=== PATIENT | female | born 1925 | race Caucasian/White ===

== ENCOUNTER 2017-01-20 02:47 | Inpatient (IN) | payer OTHER ==
[~2017-01-20] VITALS: Ht 154.9 cm; Wt 44.6 kg
[2017-01-20] VITALS (7 sets, daily range): BP systolic 118–167; BP diastolic 59–93
--- NOTE | ~2017-01-20 | PR ---
[place], [place] PROGRESS NOTE NAME: MELVI GALLEGOS UNIT #: [id number] ROOM: 409 DOCTOR: JESSICA ABBOTT,JUNE BIRTHDATE: [birth year] DOS: 01/23/2017 SUBJECTIVE: The patient is a pleasant, confused 89-year-old female who is being followed for bacteremia. One of 3 bottles upon admission had gram-positive cocci in pairs and clusters. This was felt to likely be a contaminant. She had a urine culture with E. coli. She has been afebrile, has had normal WBC since admission. Denies any nausea, vomiting or diarrhea. No rash or itch. No cough or shortness of breath. No pain anywhere. No fevers or shaking chills. CURRENT MEDICATIONS: Include Toprol, Keflex, MiraLax, Eliquis, vitamin D, Imodium, Protonix, Bentyl, DuoNebs, and Tylenol. Had an echocardiogram yesterday, which did not demonstrate a vegetation. PHYSICAL EXAMINATION: VITAL SIGNS: Show temp 98.6, pulse 95, respirations 20, BP 125/67. GENERAL: An 89-year-old female, in no acute distress. HEAD, EYES, EARS, NOSE, AND THROAT: Normocephalic, no thrush. LUNGS: Clear to auscultation bilaterally. Respirations even and unlabored. HEART: Regular rhythm. No murmur appreciated. ABDOMEN: Soft, nontender, nondistended. EXTREMITIES: No edema, deformity or cyanosis. SKIN: Warm, pink, dry, and free of rashes. ASSESSMENT: Bacteremia almost certainly contaminant, should be identified tomorrow as well as bacteriuria with E. coli colonization versus urinary tract infection. She had no pyuria with her urinalysis at the time of admission. PLAN: At this point, we will continue Keflex for another 2 days. Follow up on her blood cultures. Repeat blood cultures from the remained sterile. Case discussed with Dr. Nany Nick. JUNE MILENA LOPEZ [place], [place] PROGRESS NOTE NAME: MELVI GALLEGOS UNIT #: [id number] ROOM: 409 DOCTOR: JESSICA ABBOTT,JUNE BIRTHDATE: [birth year] NANY NICK MD CM:PNTRANS [id number] JUNE JESSICA ABBOTT 01/25/17 1050 interface
--- NOTE | ~2017-01-20 | CON ---
[place], [place] REPORT OF CONSULTATION NAME: MELVI GALLEGOS UNIT #: [id number] ROOM: 409 DOCTOR: LUCIANA FERRO MD,DAHLIA BIRTHDATE: [birth year] DOS: 01/21/2017 This consult note is to be attached to Dr. Chowdhury's independently dictated consult note. REASON FOR CONSULTATION: Pulmonary nodules on CT. CHIEF COMPLAINT: Shortness of breath. HISTORY OF PRESENT ILLNESS: The patient is an 89-year-old female who had been complaining of worsening shortness of breath that has been getting somewhat worse over the past couple of years. She, however, had a significant acute exacerbation of dyspnea last night and was brought to the ER. She has had a history of pulmonary nodules in the past and she had seen a dry cleaning counter clerk. A CT was done several times according to the family members and the findings were reportedly benign. It is unclear however if the nodules seen on the CT today are the same as the ones that were seen previously. She does have a history of coronary artery disease, hypertension, hyperlipidemia and a previous myocardial infarction. PAST SURGICAL HISTORY: Significant for appendectomy, cardiac catheterization with stenting in 2014 and a history of colon resection. SOCIAL HISTORY: The patient does not smoke, drink or use any illicit drugs. FAMILY HISTORY: Father and mother both were . Father was in his 80s and mother was in her 70s, cause unclear. ALLERGIES: LEVAQUIN, DEMEROL, FOSAMAX, CELEBREX, PARECOXIB AND ROFECOXIB. HOME MEDICATIONS: That are reported are loperamide 4 mg and dicyclomine 10 mg b.i.d. and atenolol. Discontinued the home meds Eliquis, levothyroxine, aspirin, clopidogrel, simvastatin, atenolol and potassium citrate. REVIEW OF SYSTEMS: GENERAL: Reports weight loss, but denies fevers or chills. HEENT: Denies any change in vision or hearing; drainage from eyes, nose or ears; pain in throat, ears or anywhere else. CARDIOVASCULAR: Reports palpitations, but denied any chest pain or lower extremity edema. RESPIRATIONS: Reports shortness of breath, cough, but denies any hemoptysis, denies any wheezing, denies any dyspnea on exertion or sputum production. ABDOMEN: Denies any abdominal pain, nausea, vomiting or diarrhea, but does admit to decreased appetite. GENITOURINARY: Denies dysuria, hematuria or frequency. NEUROLOGIC: Denies lightheadedness, dizziness or confusion. PSYCHIATRIC: Denies depression or anxiety. ENDOCRINE: Denies polydipsia, denies heat intolerance. SKIN: Denies any new rashes or lesions. [place], [place] REPORT OF CONSULTATION NAME: MELVI GALLEGOS UNIT #: [id number] ROOM: 409 DOCTOR: LUCIANA FERRO MD,DAHLIA BIRTHDATE: [birth year] PHYSICAL EXAMINATION: VITAL SIGNS: Most recent vital signs were 98.9 temperature, pulse 86, respirations 18 and blood pressure 99/83, bedside pulse telemetry 95% on room air. GENERAL: She is awake, alert, pleasant, cooperative, in no acute distress. HEAD: Normocephalic, atraumatic. EYES: No lesions, no ulcerations, nonicteric. ENT: No lesions, scars. Naris is patent. NECK: Without lesions, masses. No ulcerations. HEART: Regular rate and rhythm with systolic murmur. No edema in lower extremities. LUNGS: Diminished breath sounds bilaterally with some rales/crackles in lower lung beavers. ABDOMEN: Soft, positive bowel sounds, nontender. EXTREMITIES: No clubbing, cyanosis, erythema. NEUROLOGIC: Grossly intact without any apparent focal neuro deficits. PSYCHOLOGICAL: Poor historian, does not appear anxious. SKIN: Warm and dry. No nodules. LABORATORY DATA: CBC shows WBC of 5.5 and HGB of 11.1 and HCT of 34.3 and a platelet count of 130. Coagulation: D-dimer is 7.67 with INR of 1. Sodium is 143, potassium is 3.9, chloride 106, carbon dioxide 30, BUN 9, creatinine 0.95, estimated GFR approximately 55, glucose 87, calcium 7.6, phosphorus 2.6, magnesium 1.9, bilirubin total 0.8, AST 15, ALT 12, alkaline phosphatase 59. Troponin 0.1, total protein 5.7, albumin 2.6, triglycerides 57, cholesterol 131, LDL 68, VLDL 11, HDL 52 and free T4 of 1.15 with a TSH of 6.31. Vitamin B12 of 141. Vitamin D 25-hydroxy is 19.7 and folate is 14.36. Urinalysis: +1 protein, +1 blood, positive nitrites, +4 bacteria, 0-3 epithelial cells, 0-2 white cells, 5-10 red blood cells, negative leukocyte esterase, negative bilirubin, urobilinogen is 0.2. Urine glucose negative, ketones negative, specific gravity 1.015. Urine pH 6.0, appearance cloudy, color yellow. Cultures: Urine culture was positive for more than 100,000 CFUs of gram-negative bacilli. Blood cultures: 1 positive blood culture with Gram-positive cocci in pairs and clusters. This is in the aerobic sample 1 out of 2. Repeat cultures are pending. IMAGING: Chest x-ray showed prominence of interstitial lung markings and bilateral pleural disease, possibly effusions as was read by the radiologist. Chest CTA showed "innumerable bilateral pulmonary nodules, most likely metastatic disease, malignancy workup recommended. Chronic changes of COPD with small dependently layering bilateral pleural effusions. No evidence of pulmonary embolus. Focal area of consolidation identified in the lingular segment in the left upper lobe, this may represent developing pneumonia; however, additional metastatic disease is also a consideration." CT of the abdomen and pelvis showed "no acute inflammatory or bowel obstruction; small to moderate bilateral effusions, left greater than right; nodular densities in the lung bases, which correlate with the CT examination worrisome for metastatic disease, clinical correlation recommended" as read by the radiologist. IMPRESSION AND PLAN: [place], [place] REPORT OF CONSULTATION NAME: MELVI GALLEGOS UNIT #: [id number] ROOM: 409 DOCTOR[facility] B[facility]: [birth year] 1. Acute respiratory failure with multiple pulmonary nodules unclear at this time if this is metastatic or if these nodules are new compared to the previous nodules which reported. 2. Possible pneumonia and possible urinary tract infection with potential sepsis and bacteremia. The patient is currently on vancomycin for the gram-positive cocci in clusters and pairs in the blood. We will continue to follow the cultures and reevaluate. 3. Abnormal troponin and new onset atrial fibrillation. The patient has been started on Eliquis. Cardiology is following. 3. Protein-calorie malnutrition, weight loss, recommend increased protein consumption/supplemental shakes/boost. For further details, please see Dr. Chowdhury's impression and plan. ADDENDUM CONSULTATION REQUESTED BY: Hospitalist Services. REASON FOR CONSULTATION: Possibility of malignancy, metastatic in the lungs with abnormal CT scan and shortness of breath. The patient was independently seen and examined today. The history of this patient was personally completed. The patient's examination was performed. All the labs were reviewed independently as well. The assessment and management personally completed for today's visit as well. The note done by the medical clerk of the patient was approved as well. The history was noted very limited because of the patient's history of dementia, unable to give any history. Some of the history has been provided by the patient's son and most of the history has been actually reviewed from documentation by the other physicians' notes. HISTORY OF PRESENT ILLNESS: This is an 89-year-old female, who does live at home as per son. She has been noted with symptoms of increased shortness of breath recurring for the past 3 days. She has been brought to the hospital for further assessment. The patient noted shortness of breath occurring with [id number] exertion, associated with changes in appetite, which has been decreased with progressive weakness, fatigue, and malaise. The symptoms have been noted to be present for the past several days. She has not been noted with any symptoms of hemoptysis. The patient denies any symptoms of wheezing. Some dry cough was noted, which has been noted minimal as per the patient. REVIEW OF SYSTEMS: Already completed by the medical clerk. PAST MEDICAL HISTORY: 1. Significant for history described as colon cancer, diagnosed about 2 years ago, treated at the [facility] with surgical resection of the colon. The patient did not receive any radiation or chemotherapy. 2. History of chronic dementia. 3. History of essential hypertension. 4. History of hyperlipidemia. [place], [place] REPORT OF CONSULTATION NAME: MELVI GALLEGOS UNIT #: [id number] ROOM: 409 DOCTOR: LUCIANA FERRO MD,[facility] BIRTHDATE: [birth year] 5. History of coronary artery disease with past myocardial infarction, also noted history of angioedema. SOCIAL HISTORY: The patient noted nonsmoker, lifetime. There was no history of alcohol use or illicit drug use. She is currently and lives at home with her family members. PAST SURGICAL HISTORY: 1. Cataract extraction, lens implantation. 2. Partial colon resection, details unknown. 3. Cardiac catheterization. 4. Appendectomy. FAMILY HISTORY: The patient's mother is and father is also . The medical illnesses were unknown. HOME MEDICATIONS: Noted use of atenolol, dicyclomine, and loperamide. DRUG ALLERGIES: REPORTED ALLERGY TO FOSAMAX, CELEBREX, LEVAQUIN, DEMEROL, PARECOXIB, AND ROFECOXIB. PHYSICAL EXAMINATION: GENERAL: This is an 89-year-old elderly female patient noted quite debilitated at her age, sitting on the chair without any acute distress. Height of 5 feet 1 inch, weight of 98 pounds, BMI only noted at 18.5. VITAL SIGNS: Normal temperature, respiratory rate 18-25, heart rate of 156-86, blood pressure of 99/83-118/68. Intake is 1950, the output 1055 mL. The pulse oxygen saturation recorded on 3 liters was 95% on room air with 96% saturation. HEENT: Examination shows head was atraumatic. Eyes, nonicterus. Mild senile hearing loss. NECK: Supple. CARDIOVASCULAR: S1, S2 is audible. LUNGS: The patient was noted with scattered crackles, no wheezing. ABDOMEN: Soft, nontender, and flat. EXTREMITIES: Showed no edema, clubbing, or cyanosis. CENTRAL NERVOUS SYSTEM: Difficult to perform, but there were no focal deficits. The patient moving all the upper and the lower extremities. SKIN: Visible, no lesions or rashes. MUSCULOSKELETAL: No obvious deformity except mild senile kyphosis. LABORATORY DATA: Lactic acid on admission 2.3 and 1.4 on follow up. CBC of 01/20/2017 was noted essentially normal. The CMP of the patient on 01/20/2017, noted glucose of 181, BUN was normal, creatinine was normal. Sodium was noted normal and calcium was normal as well. PT/INR was noted normal. D-dimer 7.67, which was noted yesterday. Arterial blood gas yesterday pH of 7.45, pCO2 of 41, pO2 of 72.9. Troponin minimally elevated at 0.61 for the patient's second set yesterday. Third set was 0.170. Blood culture from the 01/20/2017 was noted with gram-positive cocci in clusters. CMP was noted as BUN and creatinine was normal. CBC of 01/21/2017, noted with WBC count normal, hemoglobin 11.1, hematocrit 34.3, platelet count 130,000. The third set of troponin was noted [place], [place] REPORT OF CONSULTATION NAME: MELVI GALLEGOS UNIT #: [id number] ROOM: 409 DOCTOR: DAHLIA BUTTS MD BIRTHDATE: [birth year] minimally elevated at 0.084 and the fourth one is 0.07. Culture of the urine noted to have a growth of gram-negative bacilli isolation. Radiology data which was reviewed, the chest x-ray that was done on 01/20/2017 shows patchy infiltration. The patient was noted with interstitial edema. CT scan of the abdomen and pelvis that was done on 01/20/2017 was described by the radiologist with no acute inflammatory changes, pleural fluid was described, nodular density at lower bases of the lungs was described. CTA of the chest, does not show any evidence of pulmonary embolism. Multiple nodules noted in the lungs bilaterally following the bronchovascular bundles as well of different sizes. There were no cavitations noted. The index nodule was noted in the left lower lobe as 1.4 cm in size. Evidence of ground glass opacity was noted in the lungs bilaterally with basilar area of some scarring as well. A small bilateral pleural fluid was visible as well. IMPRESSION: 1. The patient who has been currently admitted to the hospital, was noted with symptoms of shortness of breath with other changes as significant decreased appetite, malaise, and fatigue. Current pulmonary nodules were suggestive of the way they are distributed as most likely cause as metastatic malignancy noted from unknown primary with history of colon cancer certainly. The colon cancer metastatic disease in the lungs could be manifesting that way. The patient was also noted with mildly abnormal troponin, etiology unclear as well. Gram-positive cocci bacteremia was noted, possible contamination; however, the endocarditis could be considered, but usually with endocarditis the nodules are noted rapidly cavitating at least, which are not seen at the present time; however, the diagnosis of endocarditis to be considered and excluded completely. 2. Elderly status with dementia was noted as well. PLAN OF RECOMMENDATIONS: Currently being treated with the current antibiotic covering gram-positive organism. Consider echocardiogram, transthoracic and necessary transesophageal echocardiogram to rule out endocarditis. Monitoring culture results to rule out contamination. At this time, the further workup to be considered for metastatic malignancy would require a CT-guided needle aspiration biopsy if agreed upon by the patient's family members; could be done, but conservative approach could be taken because of the patient's currently advanced age. This is to be clearly discussed with the patient and with all the family members to make that determination. CEA level of the patient was ordered for the history of colon cancer to assess its level. Other etiology of the current pulmonary nodule would be considered as noninfectious including vasculitis and various other reasons. Continue symptomatic management, improve the nutritional status as well. The patient is getting the medical management for the atrial fibrillation with rapid ventricular response which were noted on current admission as well, treated with currently use of the IV Cardizem drip, currently ongoing 5 mg/hour as well as the patient was started on the Eliquis as 2.5 mg b.i.d. by the traffic sign erection supervisor. Other supportive plan of management, additional changes in treatment to be done based on the progression of illness. Prealbumin level was also ordered to assess the nutritional status. Thank you for allowing me to participate in the care of this patient. [place], [place] REPORT OF CONSULTATION NAME: MELVI GALLEGOS UNIT #: [id number] ROOM: 409 DOCTOR: DAHLIA BUTTS MD BIRTHDATE: [birth year] DAHLIA CHOWDHURY MD CM:CONSTR:REPORT OF CONSULTATION 1415 01/22/17 0857 interface
--- NOTE | ~2017-01-20 | PR ---
[place], [place] PROGRESS NOTE NAME: MELVI GALLEGOS UNIT #: [id number] ROOM: 409 DOCTOR: LUCIANA FERRO MD,DAHLIA BIRTHDATE: [birth year] DOS: 01/22/2017 SUBJECTIVE: The patient has been noted comfortable at this time, was independently seen and examined with [id number] encounter. History was confirmed. All the available labs were reviewed. The decision for patient medical management were personally made. The note done by the medical instrument technician was approved. The patient reported symptoms of acute shortness of breath at this time, was noted comfortable. There was no coughing, chest pain described. OBJECTIVE: VITAL SIGNS: Reviewed as normal. LUNGS: Noted clear. ABDOMEN: Soft, nontender. LABORATORY DATA: The patient's CEA level was noted normal. Prealbumin level noted with moderate decrease at 12. The range was noted 12 to ____. IMPRESSION: 1. Protein calorie malnutrition status. 2. Bilateral pulmonary nodules with strong possibility of cancer of the lung, which will be considered metastatic. One out of two blood cultures noted positive gram-positive cocci. Possibly contamination would be considered. However, other etiologies currently has been excluded with assessment of cardiac echocardiogram to rule out endocarditis. PLAN OF MANAGEMENT: Depends on the patient's family members further advanced directives and their decision made for this patient. Further investigation of the nodules ____ would be done with a PET scan and CT-guided needle aspiration biopsy of the index nodule of the left lower lobe. Other previous treatment plan, management therapy and care. DAHLIA CHOWDHURY MD CM:PNTRANS [id number] DAHLIA FERRO MD 01/22/17 1133 interface
--- NOTE | ~2017-01-20 | CON ---
[place], [place] REPORT OF CONSULTATION NAME: MELVI GALLEGOS UNIT #: [id number] ROOM: 409 DOCTOR: JESSICA ABBOTT,JUNE BIRTHDATE: [birth year] DOS: 01/22/2017 HISTORY OF PRESENT ILLNESS: The patient is a pleasant 89-year-old confused female who was admitted from home 2 days ago with shortness of breath. She had couple of CAT scans done. CT of the abdomen and pelvis and chest were reviewed. She had received diuresis. She had improvement of her breathing. One of her admitting blood cultures one bottle with gram-positive cocci in pairs and clusters that is only one bottle of 3. She also had a urine culture with E. coli. The urinalysis was positive for nitrites, but negative for leukocyte esterase and only 0-2 wbc's per high power field. She has been receiving Zosyn and vancomycin, was started earlier. She had echocardiogram done that was read by Dr. Kovacs that did not demonstrate any vegetation, but did demonstrate calcifications of mitral valve and aortic valve are thickened and sclerotic with decreased exertion. She has been afebrile since her admission. White counts are normal. Repeat blood cultures done yesterday are negative. ID is consulted for bacteremia and possible UTI. History is obtained per review of the [facility] chart as well as discussion with the patient's son and the patient. Though, the patient is a very poor historian due to her dementia. PAST MEDICAL HISTORY: As above as well as colon cancer, status post resection. In approximately 2 years ago, she has had diarrhea since that time and takes loperamide at home, angioedema, coronary artery disease, heart murmur, hypertension, hyperlipidemia, IA, appendectomy, cardiac cath. FAMILY MEDICAL HISTORY: Father in his 80s. Mother in her 70s, causes unknown. ALLERGIES: Include FOSAMAX, CELEBREX, LEVAQUIN, DEMEROL, PARECOXIB, ROFECOXIB. CURRENT MEDICATIONS: Vancomycin, MiraLax, Rocephin, Toprol, Eliquis, vitamin D, Imodium, Protonix, Bentyl, DuoNeb and Tylenol. LABORATORY DATA: Cultures as above. WBC is 5.5, platelets 130, creatinine 0.95, BUN 9. LFTs within normal limits. REVIEW OF SYSTEMS: Alert and oriented, confused, again has chronic loose stools, which she takes loperamide for status post colon resection for cancer, no nausea or vomiting. Denies any pain anywhere. Breathing is better. No rash or itch. No dysuria. Does have frequency with diuretics. No cough or shortness of breath currently. No fevers or shaking chills here or at home. Did have lower extremity edema at the time of admission that has since improved. No joint swelling or pain. No rash or pruritus. Further review of systems is unremarkable. PHYSICAL EXAMINATION: VITAL SIGNS: Temperature 98.0, pulse 106, respirations 20, BP 153/81. GENERAL: An 89-year-old female, in no acute distress. HEAD, EYES, EARS, NOSE AND THROAT: Normocephalic, no thrush. LUNGS: Clear to auscultation bilaterally. Respirations even and unlabored. HEART: Regular rhythm with murmur noted. [place], [place] REPORT OF CONSULTATION NAME: MELVI GALLEGOS UNIT #: [id number] ROOM: [facility] DOCTOR: JESSICA ABBOTTJUNE BIRTHDATE: [birth year] ABDOMEN: Soft, little tenderness in right lower abdomen, nondistended, positive bowel sounds. EXTREMITIES: Trace edema bilateral lower extremities. SKIN: Warm, dry, free of rashes. The patient is nontoxic in appearance. ASSESSMENT: Bacteremia one bottle. It is 3 likely a contaminant. Repeat blood cultures are negative thus far. Vancomycin was started for the positive blood culture; however, at this point, I agree it is probably contaminant and we can stop that, narrow the Rocephin down to oral Keflex for couple of more days for a questionable UTI. Follow up on the blood cultures. Case discussed with patient and son and also discussed with Dr. Nany Nick. PARRIS LOPEZ CNP NANY NICK MD CM:CONSTR:REPORT OF CONSULTATION 1640 01/22/17 1820 interface
--- NOTE | ~2017-01-20 | PR ---
[place], [place] PROGRESS NOTE NAME: [id number] UNIT #: [id number] ROOM: 409 DOCTOR: LEE JAMES DO BIRTHDATE: [birth year] DOS: 01/22/2017 This progress note is to be attached to the one dictated by Dr. Chowdhury. SUBJECTIVE: The patient was evaluated today. She is awake, alert and responsive. She is denying any chest pain, denies any vomiting, diarrhea, lightheadedness. She states she feels better than she did yesterday in terms of respiratory status, denies fevers or anything else. OBJECTIVE: VITAL SIGNS: Most recent set of vital signs, temperature is 97.8, respirations 18, pulse 93, blood pressure 128/72, bedside pulse ox 94% on room air. GENERAL: The patient appears comfortable, no acute distress. PULMONARY: Some scattered wheezes and diminished breath sounds, but no crackles. HEART: S1, S2 heard. No lower extremity edema. ABDOMEN: Soft, nontender, nondistended. NEUROLOGIC: No obvious neurological deficits. HEENT: No change. LABORATORY DATA: Chemistries: Sodium 143, potassium 3.9, chloride 106, carbon dioxide 30, BUN 9, creatinine 0.95, GFR 55, glucose 87, calcium 7.6, phosphorus 2.6, magnesium 1.9, total bilirubin 0.8, AST 15, ALT 12, alkaline phosphatase 59. CULTURES: 1. Urine culture, E. coli, pansensitive. 2. Blood cultures from the were positive for only one bottle and DP pulses from the 9th ____. 3. Radiology, ____. IMPRESSION: 1. Bilateral pulmonary nodules, likely ____ cancer, possibly from the colon. 2. The other possibilities include endocarditis. An echo has been done ____. In terms of management, this will depend on the patient and the family's decision whether to pursue a more aggressive route or whether to continue with comfort as the main goal. If they do decide to go with more aggressive route, they ____ needle aspiration with ____ in order. Otherwise, please see Dr. Chowdhury's note. LEE JAMES DO [place], [place] PROGRESS NOTE NAME: MELVI GALLEGOS UNIT #: [id number] ROOM: 409 DOCTOR: LEE JAMES DO BIRTHDATE: [birth year] DAHLIA CHOWDHURY MD CM:PNTOMAS [id number] LEE JAMES DO 01/25/17 1051 interface
--- NOTE | ~2017-01-20 | CON ---
[place], [place] REPORT OF CONSULTATION NAME: MELVI GALLEGOS UNIT #: [id number] ROOM: 409 DOCTOR: SANDOVAL BARON,NANY Jay BIRTHDATE: [birth year] DOS: 01/22/2017 ADDENDUM After reviewing the chart, labs radiographs and microbiology, I agree with above plans as described. We will follow the patient up clinically and adjust accordingly. Thank you for allowing me to see the patient and participate in her care. NANY NICK MD CM:CONSTR:REPORT OF CONSULTATION 1924 01/25/17 1104 interface
--- NOTE | ~2017-01-20 | PR ---
[place], [place] PROGRESS NOTE NAME: MELVI GALLEGOS UNIT #: [id number] ROOM: 409 DOCTOR: SANDOVAL BARON,NANY Jay BIRTHDATE: [birth year] DOS: 01/23/2017 ADDENDUM I agree with the above plans. As described, we will continue to follow the patient up clinically and adjust accordingly. NANY NICK MD CM:PNTRANS 24 [phone] NANY NICK MD 01/23/171921 interface
--- NOTE | ~2017-01-20 | PR ---
[place], [place] PROGRESS NOTE NAME: MELVI GALLEGOS UNIT #: [id number] ROOM: 409 DOCTOR: NATHANIEL HENDRICKSON MD BIRTHDATE: [birth year] DOS: 01/24/2017 REASON FOR VISIT: CHF and valvular heart disease. HISTORY OF PRESENT ILLNESS: The patient is feeling better. Denies any chest pain or shortness of breath. No PND, no orthopnea. She slept good last night. She is anticipating discharge, and wanted to be discharged today. REVIEW OF SYSTEMS: Review of the 8 systems negative except as mentioned above. RHYTHM STRIPS: The patient in sinus rhythm on the monitor. PHYSICAL EXAMINATION: VITAL SIGNS: Blood pressure 122/66, pulse 86, respiratory rate 16. GENERAL: Alert, comfortable, in no acute distress. HEENT: Pupils are round and equal. No jaundice. Tongue was moist and pharynx was clear. NECK: Supple, no distended neck veins, no carotid bruit. CHEST: Nontender. LUNGS: Few scattered rhonchi, but good air entry bilaterally. HEART: Regular rhythm, no S3. Grade 2/6 systolic ejection murmur. No palpable thrills. ABDOMEN: Benign, nontender. Bowel sounds normal. EXTREMITIES: Showed trace edema. SKIN: Warm and dry. No cyanosis, no clubbing. NEUROLOGIC: The patient is alert, oriented. No focal neurologic deficit. MEDICATIONS AND ALLERGIES: Reviewed. LABORATORY DATA: The creatinine was 1.2. IMPRESSION: 1. Acute on chronic systolic heart failure, well compensated. 2. Severe aortic stenosis. 3. Paroxysmal atrial fibrillation. 4. Severe LV dysfunction, EF 25%. 5. Chronic kidney disease. RECOMMENDATIONS: 1. Continue her Eliquis and metoprolol. 2. The patient was not on any TIFFANY or ARB due to chronic kidney disease and low blood pressure. 3. She can be discharged from the cardiac standpoint and I believe, we are waiting for a placement for her. 4. Cardiology signs off and see her as needed. 5. No family at bedside at the time of my examination. [place], [place] PROGRESS NOTE NAME: MELVI GALLEGOS UNIT #: [id number] ROOM: 409 DOCTOR: NATHANIEL HENDRICKSON MD BIRTHDATE: [birth year] NATHANIEL HENDRICKSON MD CM:NATALIE 31 NATHANIEL HENDRICKSON MD 01/24/17 1330 interface
--- NOTE | ~2017-01-20 | PR ---
[place], [place] PROGRESS NOTE NAME: MELVI GALLEGOS UNIT #: [id number] ROOM: 409 DOCTOR: NATHANIEL HENDRICKSON MD BIRTHDATE: [birth year] DOS: 01/23/2017 REASON FOR VISIT: CHF and valvular heart disease. HISTORY OF PRESENT ILLNESS: The patient is feeling better, still a little tired and short of breath. No chest pain, no dizziness, no PND. PHYSICAL EXAMINATION: VITAL SIGNS: Blood pressure 157/78, pulse ox 99, respiratory rate 16. Rhythm strips, the patient is in sinus rhythm. GENERAL: Alert, comfortable, in no acute distress. The patient is sitting in the chair. HEENT: Pupils are round and equal. No jaundice. Tongue was moist and pharynx was clear. NECK: Supple. The patient has elevated JVD, no carotid bruit. CHEST: Nontender. LUNGS: A few scattered rhonchi, decreased at bases. HEART: Regular rhythm, no S3, grade 3/6 systolic ejection murmur heard all over the precardium. No S3. No palpable thrills. ABDOMEN: Benign, nontender. Bowel sounds are normal. EXTREMITIES: Showed trace edema. Distal pulses are palpable. SKIN: Warm. No cyanosis, no clubbing. NEUROLOGIC: The patient is alert, oriented, no focal neurologic deficit. RECTAL: Deferred. IMPRESSION: 1. Wiidx-af-byaubxn systolic heart failure. 2. Severe aortic stenosis. 3. Severe left ventricular dysfunction with EF of 25%. 4. Paroxysmal atrial fibrillation. 5. Pneumonia. RECOMMENDATIONS: 1. Continue current medications. 2. I want to watch her heart rate and blood pressures. 3. Possibly she can be discharged to home tomorrow on her Eliquis and metoprolol. 4. No further cardiac testing. 5. There is no family at bedside at the time of my examination. [place], [place] PROGRESS NOTE NAME: MELVI GALLEGOS UNIT #: [id number] ROOM: 409 DOCTOR: NATHANIEL HENDRICKSON MD BIRTHDATE: [birth year] NATHANIEL HENDRICKSON MD CM:PNTRANS 1514 NATHANIEL HENDRICKSON MD 01/24/173 interface
--- NOTE | ~2017-01-20 | PR ---
[place], [place] PROGRESS NOTE NAME: MELVI GALLEGOS UNIT #: [id number] ROOM: 409 DOCTOR: DAHLIA BUTTS MD BIRTHDATE: [birth year] DOS: 01/23/2017 SUBJECTIVE: She has been noted comfortable at this time without any acute shortness of breath. There were no symptoms of coughing, chest pain or sputum expectoration described. OBJECTIVE: VITAL SIGNS: For the patient, normal temperature, respiratory rate 20, heart rate 99, blood pressure 134/76 to 152/78. HEENT: Without any acute changes. NECK: Supple. CARDIOVASCULAR: S1, S2 audible. LUNGS: Clear to auscultation bilaterally. ABDOMEN: Soft, nontender. EXTREMITIES: Shows no edema. LABORATORY DATA: Echocardiogram on 12/22/2016, moderate mitral valve regurgitation noted with severe aortic stenosis ____. The blood cultures which have been done on 10/20/2016, were reported with Gram-positive cocci in pairs and clusters, pending identification and sensitivities. IMPRESSION: Pulmonary nodule for the patient, unrelated to recurrent bacteremia, most likely contamination could be considered. Final identification sensitivities pending. ASSESSMENT: 1. Medication ___ protein-calorie malnutrition. 2. History of cancer of the colon. 3. Pulmonary nodule, rule out malignant nodules with metastasis. PLAN OF MANAGEMENT: I would not recommend any further assessment for this patient at this time due to inpatient treatment. The family members are aware of the nodule. The patient stated the nodule has been noted previously and been monitored. Other details were unknown. No family members have been available with the patient at this time to discuss that. Certainly, if they would be interested for this patient to have an outpatient workup done for the patient's pulmonary nodule, they can schedule appointment in my office after discharge. At this time, Pulmonary will sign off. Continue symptomatic management. [place], [place] PROGRESS NOTE NAME: MELVI GALLEGOS UNIT #: [id number] ROOM: 409 DOCTOR: DAHLIA BUTTS MD BIRTHDATE: [birth year] DAHLIA CHOWDHURY MD CM:PNTRANS [id number] DAHLIA FERRO MD 01/24/17 0546 interface
[~2017-01-20 02:47] MED LIST: ASPIR LOW81 MG PO; ATENOLOL50 MG PO; FELODIPINE ER2.5 MG PO; PLAVIX75 MG PO; ZOCOR20 MG PO
[2017-01-20 03:34] LABS: BASO # 0.1 10*3/uL (0.0-0.1); BASO % 0.5 % (0.0-1.0); EOS # 0.1 10*3/uL (0.0-0.4); EOS % 0.9 % (1.0-4.0); HEMATOCRIT 42.7 % (37.0-47.0); HEMOGLOBIN 13.5 g/dl (12.0-16.0); LYMPH # 1.5 10*3/uL (1.3-4.4); MEAN CELL VOLUME 97.5 fl (81.0-99.0); MEAN CORPUSCULAR HGB 30.8 pg (27.0-31.0); MEAN CORPUSCULAR HGB CONC 31.6 g/dl (33.0-37.0); MEAN PLATELET VOLUME 12.4 fl (9.6-12.3); MONO # 0.5 10*3/uL (0.1-1.0); MONO % 4.5 % (3.0-9.0); NEUT # 8.5 10*3/uL (2.3-7.9); NEUT % 79.8 % (47.0-73.0); PLATELET COUNT AUTOMATED 175 10*3/uL (130-400); RED BLOOD COUNT 4.38 10*6/uL (4.10-5.10); RED CELL DISTRI WIDTH 13.3 % (0-14.5); WHITE BLOOD COUNT 10.7 10*3/uL (4.8-10.8)
--- NOTE | 2017-01-20 03:34 | NUR ---
DR. NESBITT NOTIFIED OF CRITICAL LACTIC ACID OF 2.3
[2017-01-20 03:53] LABS: ALBUMIN 3.4 gm/dl (3.1-4.5); ALKALINE PHOSPHATASE 95 U/L (45-117); BUN 10 mg/dl (7-24); CHLORIDE 104 mmol/L (98-107); CREATININE 1.01 mg/dL (0.55-1.02); LIPASE 158 U/L (73-393); SGOT/AST 22 IU/L (3-35); SGPT/ALT 16 U/L (12-78); SODIUM 141 mmol/L (136-145); TOTAL PROTEIN 7.3 gm/dL (6.4-8.2)
[2017-01-20 03:55] LABS: TROPONIN I < 0.015 ng/ml (<0.045)
[2017-01-20 04:21] LABS: BILIRUBIN NEGATIVE (NEGATIVE); BLOOD 1+ (NEGATIVE); CLARITY SL CLOUDY (CLEAR); COLOR YELLOW (YELLOW); GLUCOSE NEGATIVE (NEGATIVE); KETONE NEGATIVE (NEGATIVE); LEUKO ESTERASE NEGATIVE (NEGATIVE); NITRITE POSITIVE (NEGATIVE); SPECIFIC GRAVITY 1.015 (1.005-1.030); UROBILINOGEN 0.2 E.U./dl (0.2-1.0)
[2017-01-20 04:29] LABS: BACTERIA 4+; EPITHELIAL CELLS 0-2; WBC 0-2 wbc/hpf (0-5)
--- NOTE | 2017-01-20 04:49 | NUR ---
PATIENT AFTER 1X ATTEMPT AT [facility] IS NOW REFUSING TEST. DR. NESBITT AWARE.
[2017-01-20] MEDS ORDERED: ELIQUIS2.5 M1 PO (08:37)
[2017-01-20] MEDS ORDERED: Synthroid,Levo50 MCG PO (08:38)
[2017-01-20] MEDS ORDERED: DICYCLOMINE HCL10 MG PO (08:39)
[2017-01-20] MEDS ORDERED: POTASSIUM CITR10 MEQ PO (08:41)
--- NOTE | 2017-01-20 09:00 | NUR ---
AN 89 Y/O FEMALE, admitted to , under the services of KENDRICK Almonte DO with a diagnosis of HX OF MALIGNANT NEOPLASM OF COLON/ACUTE DYSPNEA/MALIGNANT NODE ON LUNGS/PNEUMONIA. Chief complaint is SOB AND WEAKNESS. Patient arrived via stretcher from ER. Monitor applied. Initial assessment completed. Vital signs taken and recorded. KENDRICK ALMONTE DO notified of admission to the unit. Orders received. See assessment for past medical history, medications and allergies. Patient and/or family oriented to unit. [facility]/ visitation policy reviewed. Clothing/patient valuable form completed. LIAN ROD
[2017-01-20 09:18] LABS: ABG BASE EXCESS 4.7 mmol/L (-2.0-2.0); ABG HCO3 28.6 mmol/l (22-26); ABG O2 SATURATION 94.9 % (95-97); ARTERIAL BLOOD GAS PCO2 41.2 mmHg (35-45); ARTERIAL BLOOD GAS PH 7.456 (7.35-7.45); ARTERIAL BLOOD GAS PO2 72.9 mmHg (80-90)
[2017-01-20] MEDS ORDERED: LOPERAMIDE HCL2 MG PO (10:07)
[2017-01-20] MEDS ORDERED: ATENOLOL100 M1 PO (10:14)
--- NOTE | 2017-01-20 10:15 | NUR ---
MED LIST UPDATED WITH INFORMATION PROVIDED FROM [facility].
--- NOTE | 2017-01-20 11:15 | NUR ---
STARTING PO BARIUM PREP FOR CT ABDOMEN/PELVIS. PATIENT OTHERWISE NPO.
--- NOTE | 2017-01-20 11:32 | NUR ---
PHYSICAL THERAPY PAtient prepping for special tests. Will attempt later this date or at a later date. Thank you for this referral. Anastasiya Medrano,PT
--- NOTE | 2017-01-20 11:57 | NUR ---
[facility] NOTIFIED OF TROPONIN I RESULT.
--- NOTE | 2017-01-20 13:35 | NUR ---
PHYSICAL THERAPY PAtient is still prepping for tests. Anastasiya Medrano,PT
--- NOTE | 2017-01-20 15:16 | NUR ---
[facility] SHEET METAL DUCT INSTALLER HELPER NOTIFIED OF MOST RECENT TROPONIN RESULT OF 0.170.
--- NOTE | 2017-01-20 16:02 | NUR ---
DR. HURST NOTIFIED OF CONSULT RE: ELEVATED TROPONINS/SEPSIS/NO CHEST PAIN.
--- NOTE | 2017-01-20 20:07 | NUR ---
LAB RESULTS AND ORDERS REVIEWED
[2017-01-21] VITALS (11 sets, daily range): BP systolic 90–135; BP diastolic 53–95
--- NOTE | 2017-01-21 03:20 | NUR ---
NOTIFIED TROP 0.[address] Danielle BHAGAT
--- NOTE | 2017-01-21 04:55 | NUR ---
NOTIFIED DR BHAGAT FOR TROPONIN 0.100
[2017-01-21 05:23] LABS: ALBUMIN 2.6 gm/dl (3.1-4.5); ALKALINE PHOSPHATASE 59 U/L (45-117); BUN 9 mg/dl (7-24); CHLORIDE 106 mmol/L (98-107); CHOLESTEROL 131 mg/dL (<200); CREATININE 0.95 mg/dL (0.55-1.02); FREE T4 1.15 ng/dl (0.76-1.46); HDL CHOLESTEROL 52 mg/dl (40-60); LDL CHOLESTEROL 68 mg/dL (9-159); PHOSPHOROUS 2.6 mg/dL (2.5-4.9); POTASSIUM 3.9 mmol/L (3.5-5.1); SGOT/AST 15 IU/L (3-35); SGPT/ALT 12 U/L (12-78); SODIUM 143 mmol/L (136-145); TOTAL PROTEIN 5.7 gm/dL (6.4-8.2); TRIGLYCERIDES 57 mg/dl (<150); VLDL CHOLESTEROL 11 mg/dL (6-40)
[2017-01-21 06:00] LABS: BASO % 0.4 % (0.0-1.0); EOS # 0.2 10*3/uL (0.0-0.4); EOS % 3.1 % (1.0-4.0); LYMPH # 1.4 10*3/uL (1.3-4.4); LYMPH % 24.5 % (27.0-41.0); MEAN CELL VOLUME 96.6 fl (81.0-99.0); MEAN CORPUSCULAR HGB 31.3 pg (27.0-31.0); MEAN CORPUSCULAR HGB CONC 32.4 g/dl (33.0-37.0); MEAN PLATELET VOLUME 12.9 fl (9.6-12.3); MONO # 0.5 10*3/uL (0.1-1.0); MONO % 8.2 % (3.0-9.0); NEUT # 3.5 10*3/uL (2.3-7.9); NEUT % 63.4 % (47.0-73.0); PLATELET COUNT AUTOMATED 130 10*3/uL (130-400); RED BLOOD COUNT 3.55 10*6/uL (4.10-5.10); RED CELL DISTRI WIDTH 13.5 % (0-14.5); WHITE BLOOD COUNT 5.5 10*3/uL (4.8-10.8)
[2017-01-21 06:06] LABS: HEMATOCRIT 34.3 % (37.0-47.0); HEMOGLOBIN 11.1 g/dl (12.0-16.0)
--- NOTE | 2017-01-21 06:58 | NUR ---
NOTIFIED DR HURST OF NEW ONSET AFIB. NEW ORDERS RECEIVED AT THIS TIME. DR HURST REQUEST A CALL BACK FOR HR >100 IN 1 HR.
[2017-01-21 07:43] LABS: VITAMIN D, 25-HYDROXY 19.7 ng/mL (30-100)
--- NOTE | 2017-01-21 09:02 | NUR ---
PHYSICAL THERAPY Initial PT eval done in room this morning. Mod level complexity eval: 28932. Did not overly stress as awaiting more tests this morning, but able to gait with min hand held assist 1 in room <20' with O2 on. Please see eval for more information. Ania Glass, PT
--- NOTE | 2017-01-21 10:12 | NUR ---
In to see patient, son at bedside. Patient lives at home but multiple family memebers are in and out of the house all day long, cousin stays in the evening. She also has [facility] visiting nurses and aides 3 days per week. Son stated he may have it increased to 5 days per week. Patient and son stated no snf. Denies any other needs at home.
--- NOTE | 2017-01-21 10:45 | NUR ---
BELL MADE AWARE OF CRITICAL TRIPONIN
--- NOTE | 2017-01-21 11:11 | NUR ---
CALLED DR. CHOWDHURY FOR CONSULT HE STATES HE IS ALREADY AWARE AND SAW HER THIS MORNING
--- NOTE | 2017-01-21 12:00 | NUR ---
SPOKE WITH DR. PATIENCE ROMAN HR IS NOW IN 80'S BP MANUAL 90/60. HE STATES TO KEEP CARIZEM AT 10
--- NOTE | 2017-01-21 12:04 | NUR ---
BELL MADE AWARE OF PATIENT TROPONIN OF 0.077
--- NOTE | 2017-01-21 14:49 | NUR ---
24 HR chart check completed.
--- NOTE | 2017-01-21 16:41 | NUR ---
PATIENT IS RESTING IN THE BEDSIDE CHAIR. PATIENT DENIES ANY CHEST PAIN OR SOB. PATIENT DENIES ANY PAIN OR DISCOMFORT AT THIS TIME. PATIENT HAS HAD NO EPISODES OF N/V/D. PATIENT IS RECEIVING A CARDIZEM DRIP FOR NEW ONSET AFIB. BLOOD PRESSURE CHECKS Q2H. PATIENT HAS NO FURTHER REQUESTS AT THIS TIME. SEE SHIFT ASSESSMENT. CALL LIGHT IS WITHIN REACH.
--- NOTE | 2017-01-21 18:45 | NUR ---
PATIENT IS SITTING IN THE BEDSIDE CHAIR. PATIENT DENIES ANY PAIN OR DISCOMFORT. PATIENT IS RECEIVING A CARDIZEM DRIP FOR NEW ONSET AFIB. PATIENT HAS NO FURTHER REQUESTS AT THIS TIME. FAMILY IS AT THE BEDSIDE. CALL LIGHT IS WITHIN REACH. SEE SHIFT ASSESSMENT.
--- NOTE | 2017-01-21 20:00 | NUR ---
LAB RESULTS AND ORDERS REVIEWED
[2017-01-22] VITALS (9 sets, daily range): BP systolic 99–154; BP diastolic 64–84
--- NOTE | 2017-01-22 05:56 | NUR ---
NOTIFIED [employer] TO SPEAK WITH DR HURST. PT CONVERTED FROM AFIB TO NSR HR 80-90. CURRRENTLY AWAITING ORDERS.
--- NOTE | 2017-01-22 06:14 | NUR ---
RN RECEIVED RETURN CALL FROM DR HURST. ORDERS RECEIVED TO COLBY SO WITHOUT TITRATION.
[2017-01-22 06:40] LABS: CEA 2.5 ng/mL
--- NOTE | 2017-01-22 08:00 | NUR ---
HOB ELEVATED, EASY RESPIRATIONS WITH SKIN W/D. PT DENIES C/O AT PRESENT TIME. SEE SHIFT ASSESSMENT.
--- NOTE | 2017-01-22 09:22 | NUR ---
OOB TO CHAIR, BODY ALARM IN USE FOR PT SAFETY. DR CHOWDHURY IN TO SEE PT.
--- NOTE | 2017-01-22 09:46 | NUR ---
PHYSICAL THERAPY Taylor was seen this AM 1:1 for her therapy session and did very well. Transfer supine/sit MOD A X 1, sitting balance supervision X 1. Sit/stand, standing balance MOD A X 1. Gait total 40' X 4, verbal cueing for gait safety, turns and MIN/MOD BURRING WHEEL OPERATOR X 1, with sitting rest, Pt is confused. End with act Ex to bilateral LE of marching and LAQ's X 20 reps each with cueing. Pt up in her bedside chair, body alarm on. KILLIAN RENEE DONATIONS ATTENDANT.
--- NOTE | 2017-01-22 10:30 | NUR ---
SPOKE WITH DOROTHEA AT DR WILLINGHAM OFFICE REGARDING CONSULT.
--- NOTE | 2017-01-22 16:26 | NUR ---
PARRIS LOPEZ IN TO SEE PT, SON AT BEDSIDE.
--- NOTE | 2017-01-22 19:45 | NUR ---
PATIENT AMBULATORY IN ROOM. PER NGOC GRANDDAUGHTER SHE REQUESTS THAT TYHIS PATIENT NOT BE BED ALA,ED AT THIS TIME BECAUSE SHE IS IN THE ROOM WITH HER. PATIENT FOUND MULTIPLE TIMES WANDERING INTOT THE HALLWAY CALLING FOR HER CATS, NGOC GRAND DAUGHTER NOT ASSISTING HER AND CONTINUES TO SIT IN THE KIRSTIN-CHAIR AT [facility]. 1:1 WITH GRAND DAUGHTER ABOUT THE IMPORTANCE OF PREVENTING ANY FALLS WITH PATIENT. GRAND DAUGHTER VERBALIZED UNDERSTADING.
--- NOTE | 2017-01-22 20:41 | NUR ---
PATIENT AGAIN FOUND TO BE IN THE HALLWAY, GRAND DAUGHTER CONTIUES TO STAY SITTING IN THE CHAIR IN THE PATIENTS ROOM . 1:1 AGAIN WITH GRAND DAUGHTER AND GINETTEN ABOUT PREVENTING FALLS AND THE USEAGE OF CALL LIGHTS AND BED ALARMS. BOTH VERBALIZE UNDERSTANDING. PATIENT THEN TAKEN BYT THIS NURSE FOR A WALK AROUND THE HALLWAYS . ATTEMPTED TO ASSURE HEMA THAT HER CATS WERE NOT [facility] , HEMA WEAK, AND DOES NOT REORIENT WELL. CONTINUES TO CALL OUT FOR CATS. HEMA IN HER ROOM AT TIS TIME. AGAIN REINFORCED THAT IS PATIENT NEEDS TO USE CALL LIGHT OR EVEN FOR GRAND DAUGHTER TO USE CALL LIGHT IF SHE SEES THIS PATIENT ATTEMPTING TO ABULATE WITH OUT ASSISTANCE. GRAND DAUGHTER CONTINUES TO REFUSE BED ALARM AT THIS TIME.
--- NOTE | 2017-01-22 21:00 | NUR ---
LAB RESULTS AND ORDERS REVIEWED
[2017-01-23] VITALS: BP 151/81
[2017-01-23 08:00] VITALS: BP 152/78
--- NOTE | 2017-01-23 11:30 | NUR ---
PATIENT AWAKE & PLEASANTLY CONFUSED. PATIENT GETTING UP FREQUENTLY AND HAS NOW FIGURED OUT HOW TO TURN BODY ALARM OFF. NOTIFIED FOR POSSIBLE NEED FOR 1:1 D/T FALL RISK & ANTICOAGULANTS. NEW ORDER OBTAINED FOR 1:1 STATUS.
[2017-01-23 12:00] VITALS: BP 134/76
--- NOTE | 2017-01-23 13:30 | NUR ---
SON HERE AT THIS TIME VISITING WITH PATIENT. BODY ALARM INTACT STILL.
[2017-01-23 16:00] VITALS: BP 125/67
[2017-01-23 20:00] VITALS: BP 128/81
[2017-01-24] VITALS: BP 135/72
--- NOTE | 2017-01-24 00:46 | NUR ---
PATIENT RESTING IN BED WITH EYES CLOSED. NO SIGNS OR SYMPTOMS OF DISTRESS NOTED. PA SITTING IN ROOM WITH PATIENT. AROUSES TO VERBAL STIMULI. WILL CONTINUE TO MONITOR. CALL LIGHT IN REACH.
[2017-01-24 06:29] LABS: BASO # 0.1 10*3/uL (0.0-0.1); BASO % 0.8 % (0.0-1.0); EOS # 0.3 10*3/uL (0.0-0.4); HEMATOCRIT 42.5 % (37.0-47.0); HEMOGLOBIN 13.4 g/dl (12.0-16.0); LYMPH # 1.9 10*3/uL (1.3-4.4); LYMPH % 24.9 % (27.0-41.0); MEAN CELL VOLUME 99.1 fl (81.0-99.0); MEAN CORPUSCULAR HGB 31.2 pg (27.0-31.0); MEAN CORPUSCULAR HGB CONC 31.5 g/dl (33.0-37.0); MEAN PLATELET VOLUME 12.2 fl (9.6-12.3); MONO # 0.5 10*3/uL (0.1-1.0); MONO % 6.8 % (3.0-9.0); NEUT # 4.9 10*3/uL (2.3-7.9); NEUT % 63.1 % (47.0-73.0); PLATELET COUNT AUTOMATED 202 10*3/uL (130-400); RED BLOOD COUNT 4.29 10*6/uL (4.10-5.10); RED CELL DISTRI WIDTH 13.7 % (0-14.5); WHITE BLOOD COUNT 7.8 10*3/uL (4.8-10.8)
[2017-01-24 06:42] LABS: CREATININE 1.21 mg/dL (0.55-1.02); POTASSIUM 4.7 mmol/L (3.5-5.1); TOTAL PROTEIN 6.8 gm/dL (6.4-8.2)
[2017-01-24 08:00] VITALS: BP 124/66
--- NOTE | 2017-01-24 08:17 | NUR ---
PATIENT RESTING IN BED CALL LIGHT IN REACH PA SITTING AT BEDSIDE
--- NOTE | 2017-01-24 08:54 | NUR ---
DR. GARNICA CONTACTED REGARDING 1 BOTTLE BLOOD CULTURE (+) STAPH CAPITIS. NO NEW ORDERS.
--- NOTE | 2017-01-24 10:00 | NUR ---
SPOKE WITH PATIENTS GRANDDAUGHTER SHE WAS CALLING VERIFYING THAT PATIENT WOULD BE GOING HOME TODAY. I EXPLAINED THAT NOT ALL THE [employer] HAVE MADE THEIR ROUNDS THAT WE WOULD LET HER KNOW SOON WE FOUND ANYTHING OUT AND THAT HER GRANDMOTHER WOULD NOT BE SENT ANYPLACE UNTIL SOMEONE WAS HERE TO TAKE HER HOME
[2017-01-24] MEDS ORDERED: METOPROLOL SUC100 M1 PO (11:33)
[2017-01-24] MEDS ORDERED: KEFLEX 500 MG E2 CAP PO (11:33)
[2017-01-24] MEDS ORDERED: VITAMIN D31000 UNI1 PO (11:33)
[2017-01-24] MEDS ORDERED: TOPROL XL50 M1 PO (11:33)
[2017-01-24] MEDS ORDERED: ELIQUIS2.5 M1 PO (11:33)
--- NOTE | 2017-01-24 11:47 | NUR ---
CALLED GRAND DAUGHTER TO ERIN HER AWARE HER GRAND MOTHER WAS BEING DISCHARGED HOME/
[2017-01-24 12:00] VITALS: BP 155/93
--- NOTE | 2017-01-24 12:38 | NUR ---
PATIENTS SON IS HERE TO TAKE PATIENT HOME SHE WAS TAKEN DOWN IN A WHEELCHAIR. DISCHARGE MEDICATIONS AND ORDERS WERE REVIEWED WITH PATIENT
--- NOTE | 2017-01-25 07:14 | NUR ---
PHYSICAL THERAPY CO-SIGN I approve of the Phyical Therapy notes written above. LYUDMILA PEREZ PT
== END 2017-01-24 12:38 | disposition home health service (06) | DRG 871 ==
LOC: ED 02:47 → EDHOLD 07:13 → 4E 07:13
PROVIDERS: Emergency Medicine Emergency Medical Services; Internal Medicine; Internal Medicine Critical Care Medicine; Registered Nurse; ADMIT Internal Medicine
DX: A41.9 Sepsis, unspecified organism (principal); I50.23 Acute on chronic systolic (congestive) heart failure; J96.00 Acute respiratory failure, unspecified whether with hypoxia or hypercapnia; E44.0 Moderate protein-calorie malnutrition; C78.00 Secondary malignant neoplasm of unspecified lung; I48.0 Paroxysmal atrial fibrillation; J18.1 Lobar pneumonia, unspecified organism; I13.0 Hypertensive heart and chronic kidney disease with heart failure and stage 1 through stage 4 chronic kidney disease, or unspecified chronic kidney disease; N30.00 Acute cystitis without hematuria; B96.20 Unspecified Escherichia coli [E. coli] as the cause of diseases classified elsewhere; N18.9 Chronic kidney disease, unspecified; I25.10 Atherosclerotic heart disease of native coronary artery without angina pectoris; E78.5 Hyperlipidemia, unspecified; F03.90 Unspecified dementia, unspecified severity, without behavioral disturbance, psychotic disturbance, mood disturbance, and anxiety; I08.0 Rheumatic disorders of both mitral and aortic valves; I25.2 Old myocardial infarction; Z79.01 Long term (current) use of anticoagulants; Z79.899 Other long term (current) drug therapy; Z95.5 Presence of coronary angioplasty implant and graft; Z85.038 Personal history of other malignant neoplasm of large intestine; Z90.49 Acquired absence of other specified parts of digestive tract; Z88.1 Allergy status to other antibiotic agents; Z88.8 Allergy status to other drugs, medicaments and biological substances

== ENCOUNTER 2017-03-05 02:50 | Inpatient (IN) | payer OTHER ==
[~2017-03-05] VITALS: Ht 157.5 cm; Wt 55.4 kg
[2017-03-05] VITALS (9 sets, daily range): BP systolic 122–196; BP diastolic 66–118
--- NOTE | ~2017-03-05 | EKG ---
[place], [place] ELECTROCARDIOGRAM REPORT NAME: MELVI GALLEGOS UNIT #: [id number] ROOM: [facility] DOCTOR: MADHAVI BARON,NATHANIEL BIRTHDATE: [birth year] DOS: 03/08/2017 TIME: 1458 hours. IMPRESSION: 1. Atrial fibrillation versus multifocal atrial tachycardia. 2. Old anterior infarction. 3. Lateral ST-T changes. NATHANIEL HENDRICKSON MD CM:EKGRPT:ELECTROCARDIOGRAM REPORT 1335 1518 NATHANIEL HENDRICKSON MD
--- NOTE | ~2017-03-05 | CON ---
[place], [place] REPORT OF CONSULTATION NAME: MELVI GALLEGOS UNIT #: [id number] ROOM: [facility] DOCTOR: MADHAVI BARON,NATHANIEL BIRTHDATE: [birth year] DOS: 03/09/2017 REASON FOR CONSULTATION: Atrial fibrillation with rapid ventricular rate. CLINICAL HISTORY: The patient is an 89-year-old patient with history of paroxysmal atrial fibrillation, colon cancer, coronary artery disease and hypertension, presented on 03/05 for shortness of breath and she was admitted with respiratory failure and pneumonia as well as congestive heart failure. The patient denies any chest pain or palpitations. The history was obtained from the chart as well as from the patient. She went into atrial fibrillation with rapid ventricular rate, hence, Cardiology was consulted for further recommendations. At the time of examination, the patient is alert, oriented, sitting at the bedside in the chair in no acute distress. Denies any chest pain or palpitations. No edema, no orthopnea, no PND. Her breathing is much better. No cough or hemoptysis. No nausea, vomiting, or diarrhea. No hematuria or dysuria. No fever or chills. REVIEW OF SYSTEMS: Review of the 8 systems negative except as mentioned above. PAST MEDICAL HISTORY: 1. Coronary artery disease. 2. Paroxysmal atrial fibrillation. 3. Hypertension. 4. Colon cancer. 5. Dyslipidemia. 6. Pulmonary nodules. PAST SURGICAL HISTORY: History of appendicectomy and colon resection. SOCIAL HISTORY: The patient does not smoke or drink, does not use illicit drugs. FAMILY HISTORY: Noncontributory. Father in 80s and mother in her 70s. ALLERGIES: The patient has multiple allergies, reviewed. HOME MEDICATIONS: Reviewed. Cardiac medications include metoprolol and Eliquis. PHYSICAL EXAMINATION: VITAL SIGNS: Blood pressure 131/89, pulse 66, respiratory rate 20. Weight was 49.4 kilos with a BMI 19.9. GENERAL: Alert, comfortable, in no acute distress. HEENT: Pupils are round and equal. No jaundice. Tongue was moist and pharynx was clear. NECK: Supple, no distended neck veins, no carotid bruit. CHEST: Symmetrical, nontender. LUNGS: Few scattered rhonchi, but good air entry bilaterally. HEART: Irregular, no S3, grade 1/6 systolic murmur. [place], [place] REPORT OF CONSULTATION NAME: MELVI GALLEGOS UNIT #: [id number] ROOM: [facility] DOCTOR: MADHAVI BARON,NATHANIEL BIRTHDATE: [birth year] ABDOMEN: Benign, nontender. Bowel sounds normal. EXTREMITIES: Showed trace to 1+ edema. Distal pulses are palpable. SKIN: Warm and dry. No cyanosis, no clubbing. NEUROLOGIC: The patient is alert, oriented. No focal neurologic deficit. RECTAL: Deferred. GENITOURINARY: Deferred. Medications, allergies and EKG reviewed. The EKG showed atrial fibrillation with old anterior [place] with lateral ST-T changes. Her CBC, chemistry and imaging studies reviewed. IMPRESSION: 1. Paroxysmal atrial fibrillation with rapid ventricular rate. 2. Acute recurrent diastolic heart failure. 3. Respiratory failure. 4. Community-acquired pneumonia. 5. Hypertension. 6. History of coronary artery disease. 7. History of colon cancer. RECOMMENDATIONS: 1. Clinically, she appears stable and currently her blood pressure and heart rate are stable. 2. Continue her metoprolol and monitor heart rate and blood pressures. 3. Continue her Eliquis for anticoagulation. 4. No further cardiac testing. 5. There is no family at bedside at the time of my examination. 6. Cardiology will see as needed from tomorrow. 7. The patient can be transferred from ICU to telemetry bed. NATHANIEL HENDRICKSON MD CM:CONSTR:REPORT OF CONSULTATION 1326 03/09/17 1353 interface
--- NOTE | ~2017-03-05 | EKG ---
[place], [place] ELECTROCARDIOGRAM REPORT NAME: MELVI GALLEGOS UNIT #: [id number] ROOM: 509 DOCTOR: LUCIANA FERRO MD,DAHLIA BIRTHDATE: [birth year] DOS: 03/05/2017 Electrocardiogram was done on 03/05/2017, at 3:11 a.m. Normal sinus rhythm was noted. The patient's heart rate 94 beats per minute. LVH was noted with voltage criteria. Poor R-wave progression was noted in the chest leads to rule out any ischemic changes. Nonspecific ST-T changes, otherwise noted. DAHLIA CHOWDHURY MD CM:EKGRPT:ELECTROCARDIOGRAM REPORT [id number] DAHLIA FERRO MD
--- NOTE | ~2017-03-05 | EKG ---
[place], [place] ELECTROCARDIOGRAM REPORT NAME: MELVI GALLEGOS UNIT #: [id number] ROOM: [facility] DOCTOR: MADHAVI BARON,NATHANIEL BIRTHDATE: [birth year] DOS: 03/10/2017 TIME: 1259 hours. IMPRESSION: 1. Sinus rhythm. 2. Ventricular ectopy. 3. Left ventricular hypertrophy. 4. Left lateral ST-T changes. 5. Anterior infarction, age undetermined. 6. Prolonged acute interval. NATHANIEL HENDRICKSON MD CM:EKGRPT:ELECTROCARDIOGRAM REPORT [id number] NATHANIEL HENDRICKSON MD
[~2017-03-05 02:50] MED LIST changes: +ATENOLOL100 M1 PO; +DICYCLOMINE HCL10 MG PO; +ELIQUIS2.5 M1 PO; +KEFLEX 500 MG E2 CAP PO; +LOPERAMIDE HCL2 MG PO; +METOPROLOL SUC100 M1 PO; +POTASSIUM CITR10 MEQ PO; +Synthroid,Levo50 MCG PO; +TOPROL XL50 M1 PO; +VITAMIN D31000 UNI1 PO
[2017-03-05 03:20] LABS: BASO # 0.1 10*3/uL (0.0-0.1); BASO % 0.5 % (0.0-1.0); EOS # 0.1 10*3/uL (0.0-0.4); EOS % 1.1 % (1.0-4.0); HEMATOCRIT 44.8 % (37.0-47.0); HEMOGLOBIN 14.1 g/dl (12.0-16.0); LYMPH # 3.7 10*3/uL (1.3-4.4); LYMPH % 30.8 % (27.0-41.0); MEAN CELL VOLUME 98.9 fl (81.0-99.0); MEAN CORPUSCULAR HGB 31.1 pg (27.0-31.0); MEAN CORPUSCULAR HGB CONC 31.5 g/dl (33.0-37.0); MEAN PLATELET VOLUME 11.7 fl (9.6-12.3); MONO # 0.5 10*3/uL (0.1-1.0); MONO % 4.4 % (3.0-9.0); NEUT # 7.6 10*3/uL (2.3-7.9); PLATELET COUNT AUTOMATED 222 10*3/uL (130-400); RED BLOOD COUNT 4.53 10*6/uL (4.10-5.10)
[2017-03-05 03:30] LABS: ACT PARTIAL THROMBO TIME 23.6 SECONDS (20.8-31.5)
[2017-03-05 03:38] LABS: ALBUMIN 3.4 gm/dl (3.1-4.5); CREATININE 1.47 mg/dL (0.55-1.02); POTASSIUM 3.6 mmol/L (3.5-5.1); TOTAL PROTEIN 7.4 gm/dL (6.4-8.2); TROPONIN I 0.024 ng/ml (<0.045)
[2017-03-05] MEDS ORDERED: METOPROLOL SUCC50 M1 PO (04:55)
[2017-03-05 09:28] LABS: ABG BASE EXCESS -1.3 mmol/L (-2.0-2.0); ABG HCO3 22.3 mmol/l (22-26); ABG O2 SATURATION 97.3 % (95-97); ARTERIAL BLOOD GAS PCO2 34.7 mmHg (35-45); ARTERIAL BLOOD GAS PH 7.421 (7.35-7.45); ARTERIAL BLOOD GAS PO2 93.2 mmHg (80-90)
[2017-03-05 09:54] LABS: BILIRUBIN NEGATIVE (NEGATIVE); BLOOD 2+ (NEGATIVE); CLARITY CLOUDY (CLEAR); COLOR YELLOW (YELLOW); GLUCOSE NEGATIVE (NEGATIVE); KETONE TRACE (NEGATIVE); LEUKO ESTERASE 1+ (NEGATIVE); NITRITE NEGATIVE (NEGATIVE); PH 5.5 (5.0-9.0); SPECIFIC GRAVITY 1.025 (1.005-1.030); UROBILINOGEN 0.2 E.U./dl (0.2-1.0)
[2017-03-05 10:32] LABS: BACTERIA 3+; URIC ACID CRYSTALS 3+; WBC 31-40 wbc/hpf (0-5)
[2017-03-06] VITALS: BP 122/69
[2017-03-06 04:00] VITALS: BP 129/89
[2017-03-06 06:08] LABS: BASO % 0.2 % (0.0-1.0); EOS % 0.1 % (1.0-4.0); LYMPH # 0.8 10*3/uL (1.3-4.4); LYMPH % 6.4 % (27.0-41.0); MEAN CELL VOLUME 98.9 fl (81.0-99.0); MEAN CORPUSCULAR HGB 31.9 pg (27.0-31.0); MEAN CORPUSCULAR HGB CONC 32.2 g/dl (33.0-37.0); MEAN PLATELET VOLUME 11.8 fl (9.6-12.3); MONO # 0.6 10*3/uL (0.1-1.0); MONO % 4.9 % (3.0-9.0); NEUT % 87.9 % (47.0-73.0); RED BLOOD COUNT 3.73 10*6/uL (4.10-5.10); WHITE BLOOD COUNT 12.5 10*3/uL (4.8-10.8)
[2017-03-06 06:10] LABS: HEMATOCRIT 36.9 % (37.0-47.0); HEMOGLOBIN 11.9 g/dl (12.0-16.0); PLATELET COUNT AUTOMATED 139 10*3/uL (130-400)
[2017-03-06 06:35] LABS: ALBUMIN 2.7 gm/dl (3.1-4.5)
[2017-03-06 06:42] LABS: CREATININE 1.28 mg/dL (0.55-1.02); FREE T4 0.88 ng/dl (0.76-1.46); PHOSPHOROUS 3.6 mg/dL (2.5-4.9)
[2017-03-06 06:53] LABS: POTASSIUM 4.7 mmol/L (3.5-5.1); THYROID STIM HORMONE (HS) 1.69 uIU/ml (0.358-4.75)
[2017-03-06 08:00] VITALS: BP 121/82
[2017-03-06 12:00] VITALS: BP 106/69
[2017-03-06 16:00] VITALS: BP 141/79
[2017-03-06 20:00] VITALS: BP 163/91
[2017-03-07] VITALS (7 sets, daily range): BP systolic 121–158; BP diastolic 72–86
[2017-03-07 05:56] LABS: BASO % 0.2 % (0.0-1.0); HEMATOCRIT 40.3 % (37.0-47.0); HEMOGLOBIN 12.7 g/dl (12.0-16.0); LYMPH # 0.5 10*3/uL (1.3-4.4); LYMPH % 4.5 % (27.0-41.0); MEAN CELL VOLUME 97.1 fl (81.0-99.0); MEAN CORPUSCULAR HGB 30.6 pg (27.0-31.0); MEAN CORPUSCULAR HGB CONC 31.5 g/dl (33.0-37.0); MEAN PLATELET VOLUME 12.9 fl (9.6-12.3); MONO # 0.6 10*3/uL (0.1-1.0); MONO % 5.6 % (3.0-9.0); PLATELET COUNT AUTOMATED 154 10*3/uL (130-400); RED BLOOD COUNT 4.15 10*6/uL (4.10-5.10); RED CELL DISTRI WIDTH 14.1 % (0-14.5); WHITE BLOOD COUNT 11.2 10*3/uL (4.8-10.8)
[2017-03-07 06:15] LABS: ALBUMIN 3.2 gm/dl (3.1-4.5); CREATININE 1.52 mg/dL (0.55-1.02); POTASSIUM 4.1 mmol/L (3.5-5.1); TOTAL PROTEIN 6.5 gm/dL (6.4-8.2)
[2017-03-08 04:02] VITALS: BP 122/77
[2017-03-08 05:15] LABS: HEMATOCRIT 34.8 % (37.0-47.0); HEMOGLOBIN 11.1 g/dl (12.0-16.0); MEAN CELL VOLUME 96.7 fl (81.0-99.0); MEAN CORPUSCULAR HGB 30.8 pg (27.0-31.0); MEAN CORPUSCULAR HGB CONC 31.9 g/dl (33.0-37.0); MEAN PLATELET VOLUME 12.9 fl (9.6-12.3); PLATELET COUNT AUTOMATED 132 10*3/uL (130-400); RED CELL DISTRI WIDTH 13.9 % (0-14.5); WHITE BLOOD COUNT 8.8 10*3/uL (4.8-10.8)
[2017-03-08 05:32] LABS: ALBUMIN 2.7 gm/dl (3.1-4.5); CREATININE 1.41 mg/dL (0.55-1.02); POTASSIUM 3.6 mmol/L (3.5-5.1); TOTAL PROTEIN 5.7 gm/dL (6.4-8.2)
[2017-03-08 06:21] LABS: PLATELET SUFFICIENCY NORMAL (NORMAL); TOTAL CELLS COUNTED 100 #CELLS
[2017-03-08 08:00] VITALS: BP 127/87
[2017-03-08 12:00] VITALS: BP 130/74
[2017-03-08 16:00] VITALS: BP 128/78
[2017-03-08 20:00] VITALS: BP 147/90
[2017-03-09] VITALS (7 sets, daily range): BP systolic 101–177; BP diastolic 68–105
[2017-03-09 05:15] LABS: HEMATOCRIT 34.5 % (37.0-47.0); HEMOGLOBIN 11.1 g/dl (12.0-16.0); MEAN CELL VOLUME 95.6 fl (81.0-99.0); MEAN CORPUSCULAR HGB 30.7 pg (27.0-31.0); MEAN CORPUSCULAR HGB CONC 32.2 g/dl (33.0-37.0); MEAN PLATELET VOLUME 12.6 fl (9.6-12.3); PLATELET COUNT AUTOMATED 145 10*3/uL (130-400); RED BLOOD COUNT 3.61 10*6/uL (4.10-5.10); RED CELL DISTRI WIDTH 14.1 % (0-14.5); WHITE BLOOD COUNT 8.3 10*3/uL (4.8-10.8)
[2017-03-09 05:28] LABS: CREATININE 1.38 mg/dL (0.55-1.02); POTASSIUM 3.8 mmol/L (3.5-5.1)
[2017-03-09 06:00] LABS: PLATELET SUFFICIENCY NORMAL (NORMAL); TOTAL CELLS COUNTED 100 #CELLS
[2017-03-09 12:07] LABS: LEGIONELLA URINARY ANTIGEN Negative (Negative)
[2017-03-10] VITALS: BP 139/74
[2017-03-10 05:36] LABS: CREATININE 1.42 mg/dL (0.55-1.02); POTASSIUM 3.9 mmol/L (3.5-5.1)
[2017-03-10 05:39] LABS: PHOSPHOROUS 2.8 mg/dL (2.5-4.9); VANCOMYCIN TROUGH 13.9 ug/mL (10-20)
[2017-03-10 06:11] LABS: HEMATOCRIT 34.6 % (37.0-47.0); HEMOGLOBIN 11.2 g/dl (12.0-16.0); MEAN CELL VOLUME 96.4 fl (81.0-99.0); MEAN CORPUSCULAR HGB 31.2 pg (27.0-31.0); MEAN CORPUSCULAR HGB CONC 32.4 g/dl (33.0-37.0); MEAN PLATELET VOLUME 12.9 fl (9.6-12.3); PLATELET COUNT AUTOMATED 151 10*3/uL (130-400); RED BLOOD COUNT 3.59 10*6/uL (4.10-5.10)
[2017-03-10 06:52] LABS: TOTAL CELLS COUNTED 100 #CELLS
[2017-03-10 06:53] LABS: PLATELET SUFFICIENCY NORMAL (NORMAL)
[2017-03-10 08:00] VITALS: BP 158/81
[2017-03-10 12:00] VITALS: BP 143/93
[2017-03-10] MEDS ORDERED: DILTIAZEM HCL30 MG PO (15:13)
[2017-03-10] MEDS ORDERED: DOXYCYCLINE100 M3 PO (15:13)
[2017-03-10] MEDS ORDERED: PREDNISONE10 MG PO (15:13)
[2017-03-10 16:00] VITALS: BP 138/75
[2017-03-10 20:00] VITALS: BP 160/78
[2017-03-11] VITALS: BP 128/68
[2017-03-11 06:57] LABS: HEMATOCRIT 35.9 % (37.0-47.0); HEMOGLOBIN 11.6 g/dl (12.0-16.0); MEAN CELL VOLUME 97.6 fl (81.0-99.0); MEAN CORPUSCULAR HGB 31.5 pg (27.0-31.0); MEAN CORPUSCULAR HGB CONC 32.3 g/dl (33.0-37.0); MEAN PLATELET VOLUME 12.6 fl (9.6-12.3); PLATELET COUNT AUTOMATED 160 10*3/uL (130-400); RED BLOOD COUNT 3.68 10*6/uL (4.10-5.10); RED CELL DISTRI WIDTH 14.1 % (0-14.5); WHITE BLOOD COUNT 8.5 10*3/uL (4.8-10.8)
[2017-03-11 07:19] LABS: CREATININE 1.47 mg/dL (0.55-1.02); PHOSPHOROUS 3.1 mg/dL (2.5-4.9)
[2017-03-11 07:32] LABS: TOTAL CELLS COUNTED 100 #CELLS
[2017-03-11 07:33] LABS: PLATELET SUFFICIENCY NORMAL (NORMAL)
[2017-03-11 08:00] VITALS: BP 151/80
[2017-03-11 12:00] VITALS: BP 148/78
== END 2017-03-11 15:26 | disposition other institution (70) | DRG 871 ==
LOC: ED 02:50 → EDHOLD 04:04 → ICCU 04:04 → 5E 04:04 → ICCU 04:10 → 5E 03-06 12:43 → ICCU 03-07 02:07 → 5E 03-09 14:01
PROVIDERS: Emergency Medicine; Family Medicine; Internal Medicine; Internal Medicine Nephrology; Student in an Organized Health Care Education/Training Program
PROC: 5A09357 Assistance with Respiratory Ventilation, Less than 24 Consecutive Hours, Continuous Positive Airway Pressure (ICD-10-PCS; principal; 2017-03-05)
DX: A41.9 Sepsis, unspecified organism (principal); J18.9 Pneumonia, unspecified organism; J96.01 Acute respiratory failure with hypoxia; I50.43 Acute on chronic combined systolic (congestive) and diastolic (congestive) heart failure; E44.0 Moderate protein-calorie malnutrition; E87.2 Acidosis; N17.9 Acute kidney failure, unspecified; I13.0 Hypertensive heart and chronic kidney disease with heart failure and stage 1 through stage 4 chronic kidney disease, or unspecified chronic kidney disease; I48.0 Paroxysmal atrial fibrillation; R65.20 Severe sepsis without septic shock; I25.10 Atherosclerotic heart disease of native coronary artery without angina pectoris; F03.90 Unspecified dementia, unspecified severity, without behavioral disturbance, psychotic disturbance, mood disturbance, and anxiety; N18.3 Chronic kidney disease, stage 3 (moderate); R73.9 Hyperglycemia, unspecified; Y95 Nosocomial condition; R91.8 Other nonspecific abnormal finding of lung field; E78.5 Hyperlipidemia, unspecified; I25.2 Old myocardial infarction; Z85.038 Personal history of other malignant neoplasm of large intestine; Z98.49 Cataract extraction status, unspecified eye; Z90.89 Acquired absence of other organs; Z88.1 Allergy status to other antibiotic agents; Z88.8 Allergy status to other drugs, medicaments and biological substances; Z79.899 Other long term (current) drug therapy; Z87.440 Personal history of urinary (tract) infections; Z95.5 Presence of coronary angioplasty implant and graft; Z68.20 Body mass index [BMI] 20.0-20.9, adult; Z91.81 History of falling

== ENCOUNTER 2017-04-15 20:41 | Inpatient (IN) | payer OTHER ==
[~2017-04-15] VITALS: Ht 152.4 cm; Wt 55.5 kg
--- NOTE | ~2017-04-15 | CON ---
[place], [place] REPORT OF CONSULTATION NAME: MELVI GALLEGOS UNIT #: [id number] ROOM: 524 DOCTOR: BROOKLYNN REIS MD BIRTHDATE: [birth year] DOS: 04/19/2017 CHIEF COMPLAINT: "Morning." SUMMARY OF THE VISIT: This is an 89-year-old female who presents to [facility] from . The patient has had possible TIA or stroke. Additionally, from a psychiatric standpoint, she has not been eating or drinking very much and per the note dictated, the son reported to the hospitalist that she had not eaten very much and that if she was given a little bit of water even she would perk up considerably. The patient appears rather depressed and despondent and is even on Marinol to stimulate appetite. MENTAL STATUS: Limited due to her lack of cooperation or ability to speak. She seemed rather tired and disinterested. DIAGNOSIS: Major depression, recurrent. PLAN: I will discontinue her Seroquel and her sertraline due to ineffectiveness. If her appetite is so poor that Marinol is being utilized, I would utilize an antidepressant like mirtazapine 15 mg at bedtime. This will dramatically aid sleep and also improve appetite helping increase her nutritional status. I would stay low at 15 mg as this will give you the maximum appetite stimulating effect. Should you require further intervention, please feel free to contact me. BROOKLYNN REIS MD CM:CONSTR:REPORT OF CONSULTATION 1027 04/19/17 1043 interface
[~2017-04-15 20:41] MED LIST changes: +CEFUROXIME AXE500 MG PO; +DILTIAZEM HCL30 MG PO; +DOXYCYCLINE100 M3 PO; +METOPROLOL SUCC50 M1 PO; +PREDNISONE10 MG PO
[2017-04-15 20:57] VITALS: BP 111/55
[2017-04-15 21:14] LABS: BILIRUBIN NEGATIVE (NEGATIVE); BLOOD NEGATIVE (NEGATIVE); CLARITY SL CLOUDY (CLEAR); GLUCOSE 2+ (NEGATIVE); KETONE 1+ (NEGATIVE); LEUKO ESTERASE 1+ (NEGATIVE); NITRITE POSITIVE (NEGATIVE); SPECIFIC GRAVITY 1.015 (1.005-1.030); UROBILINOGEN >= 8.0 E.U./dl (0.2-1.0)
[2017-04-15 21:23] LABS: URINE AMPHETAMINES < 1000 (1000ng/ml); URINE BARBITURATES < 200 (200ng/ml); URINE BENZODIAZEPINES < 200 (200ng/ml); URINE CANNABINOIDS (THC) > 50 (50ng/ml); URINE COCAINE < 300 (300ng/ml); URINE METHADONE < 300 (300ng/ml); URINE OPIATES < 300 (300ng/ml); URINE PHENCYCLIDINE < 25 (25ng/ml)
[2017-04-15 21:24] LABS: COLOR RED (YELLOW)
[2017-04-15 21:27] LABS: RBC 21-30 rbc/hpf (0-2)
[2017-04-15 21:28] LABS: BACTERIA 2+
[2017-04-15 21:37] LABS: BASO % 0.4 % (0.0-1.0); EOS % 0.2 % (1.0-4.0); HEMATOCRIT 43.3 % (37.0-47.0); LYMPH # 1.4 10*3/uL (1.3-4.4); MEAN CELL VOLUME 98.9 fl (81.0-99.0); MEAN CORPUSCULAR HGB CONC 32.3 g/dl (33.0-37.0); MEAN PLATELET VOLUME 11.6 fl (9.6-12.3); MONO # 0.5 10*3/uL (0.1-1.0); MONO % 5.4 % (3.0-9.0); NEUT # 6.6 10*3/uL (2.3-7.9); NEUT % 77.3 % (47.0-73.0); PLATELET COUNT AUTOMATED 183 10*3/uL (130-400); RED BLOOD COUNT 4.38 10*6/uL (4.10-5.10); RED CELL DISTRI WIDTH 16.6 % (0-14.5); WHITE BLOOD COUNT 8.6 10*3/uL (4.8-10.8)
[2017-04-15 21:54] LABS: ALBUMIN 3.1 gm/dl (3.1-4.5); CREATININE 1.05 mg/dL (0.55-1.02); TOTAL PROTEIN 6.5 gm/dL (6.4-8.2)
[2017-04-15 22:01] LABS: ACT PARTIAL THROMBO TIME 27.3 SECONDS (20.8-31.5); INTERNATIONAL NORM RATIO 1.1 (2.0-3.5)
[2017-04-15 22:05] LABS: THYROID STIM HORMONE (HS) 6.07 uIU/ml (0.358-4.75)
[2017-04-15] MEDS ORDERED: CEFUROXIME AXE250 MG PO (22:05)
[2017-04-15] MEDS ORDERED: DRONABINOL2.5 MG PO (22:05)
[2017-04-15] MEDS ORDERED: AZO-STANDARD95 MG PO (22:07)
[2017-04-15] MEDS ORDERED: ZOLOFT50 MG PO (22:10)
[2017-04-15] MEDS ORDERED: QUESTRAN LIGHT210 GM PO (22:12)
[2017-04-15] MEDS ORDERED: SEROQUEL25 MG PO (22:14)
[2017-04-15] MEDS ORDERED: LATANOPROST2.5 ML OU (22:15)
[2017-04-15 22:26] VITALS: BP 112/46
[2017-04-15 22:34] VITALS: BP 105/42
[2017-04-15 23:25] VITALS: BP 105/46
[2017-04-16 00:30] VITALS: BP 105/46
[2017-04-16] MEDS ORDERED: CHOLESTEROL MC (00:32)
[2017-04-16 08:00] VITALS: BP 130/76
[2017-04-16 08:22] LABS: BASO % 0.5 % (0.0-1.0); EOS % 0.2 % (1.0-4.0); HEMATOCRIT 41.7 % (37.0-47.0); HEMOGLOBIN 13.4 g/dl (12.0-16.0); LYMPH # 1.2 10*3/uL (1.3-4.4); LYMPH % 14.2 % (27.0-41.0); MEAN CELL VOLUME 99.5 fl (81.0-99.0); MEAN CORPUSCULAR HGB CONC 32.1 g/dl (33.0-37.0); MEAN PLATELET VOLUME 12.5 fl (9.6-12.3); MONO # 0.6 10*3/uL (0.1-1.0); MONO % 6.9 % (3.0-9.0); NEUT # 6.6 10*3/uL (2.3-7.9); NEUT % 77.5 % (47.0-73.0); PLATELET COUNT AUTOMATED 169 10*3/uL (130-400); RED BLOOD COUNT 4.19 10*6/uL (4.10-5.10); RED CELL DISTRI WIDTH 16.7 % (0-14.5); WHITE BLOOD COUNT 8.5 10*3/uL (4.8-10.8)
[2017-04-16 09:10] LABS: ALBUMIN 2.4 gm/dl (3.1-4.5); ALKALINE PHOSPHATASE 98 U/L (45-117); BUN 16 mg/dl (7-24); CHLORIDE 111 mmol/L (98-107); CREATININE 0.94 mg/dL (0.55-1.02); SGOT/AST 54 IU/L (3-35); SGPT/ALT 35 U/L (12-78); SODIUM 143 mmol/L (136-145); TOTAL PROTEIN 5.9 gm/dL (6.4-8.2)
[2017-04-16 12:00] VITALS: BP 102/87
[2017-04-16 16:00] VITALS: BP 150/78
[2017-04-16 20:00] VITALS: BP 142/76
[2017-04-17] VITALS: BP 155/89
[2017-04-17 06:31] LABS: BASO # 0.1 10*3/uL (0.0-0.1); EOS % 0.4 % (1.0-4.0); HEMATOCRIT 43.7 % (37.0-47.0); HEMOGLOBIN 14.2 g/dl (12.0-16.0); LYMPH # 1.9 10*3/uL (1.3-4.4); LYMPH % 26.4 % (27.0-41.0); MEAN CELL VOLUME 98.6 fl (81.0-99.0); MEAN CORPUSCULAR HGB 32.1 pg (27.0-31.0); MEAN CORPUSCULAR HGB CONC 32.5 g/dl (33.0-37.0); MEAN PLATELET VOLUME 12.2 fl (9.6-12.3); MONO # 0.6 10*3/uL (0.1-1.0); MONO % 7.9 % (3.0-9.0); NEUT # 4.5 10*3/uL (2.3-7.9); NEUT % 63.3 % (47.0-73.0); PLATELET COUNT AUTOMATED 184 10*3/uL (130-400); RED BLOOD COUNT 4.43 10*6/uL (4.10-5.10); RED CELL DISTRI WIDTH 16.8 % (0-14.5); WHITE BLOOD COUNT 7.1 10*3/uL (4.8-10.8)
[2017-04-17 06:33] LABS: ALBUMIN 2.7 gm/dl (3.1-4.5); ALKALINE PHOSPHATASE 95 U/L (45-117); BUN 16 mg/dl (7-24); CHLORIDE 113 mmol/L (98-107); CREATININE 0.95 mg/dL (0.55-1.02); POTASSIUM 3.7 mmol/L (3.5-5.1); SGOT/AST 34 IU/L (3-35); SGPT/ALT 26 U/L (12-78); SODIUM 147 mmol/L (136-145); TOTAL PROTEIN 6.1 gm/dL (6.4-8.2)
[2017-04-17 08:00] VITALS: BP 157/85
[2017-04-17 12:00] VITALS: BP 146/78
[2017-04-17 16:00] VITALS: BP 148/90
[2017-04-17 20:00] VITALS: BP 132/76
[2017-04-18] VITALS: BP 146/80
[2017-04-18 07:35] LABS: CHLORIDE 113 mmol/L (98-107); PHOSPHOROUS 2.4 mg/dL (2.5-4.9); POTASSIUM 4.2 mmol/L (3.5-5.1); SODIUM 144 mmol/L (136-145)
[2017-04-18 07:37] LABS: BUN 13 mg/dl (7-24)
[2017-04-18 07:47] VITALS: BP 151/66
[2017-04-18 12:00] VITALS: BP 138/62
[2017-04-18 16:00] VITALS: BP 150/77
[2017-04-18 20:00] VITALS: BP 133/68
[2017-04-18 23:17] VITALS: BP 129/78
[2017-04-19 07:51] LABS: BUN 11 mg/dl (7-24); CHLORIDE 114 mmol/L (98-107); CREATININE 0.75 mg/dL (0.55-1.02); POTASSIUM 3.7 mmol/L (3.5-5.1); SODIUM 147 mmol/L (136-145)
[2017-04-19 08:00] VITALS: BP 148/87
[2017-04-19 12:00] VITALS: BP 150/88
== END 2017-04-19 15:17 | DRG 640 ==
LOC: ED 20:41 → 5E 22:57
PROVIDERS: Emergency Medicine Emergency Medical Services; Family Medicine Adult Medicine; Internal Medicine
DX: E86.0 Dehydration (principal); G93.41 Metabolic encephalopathy; E43 Unspecified severe protein-calorie malnutrition; I50.42 Chronic combined systolic (congestive) and diastolic (congestive) heart failure; E87.8 Other disorders of electrolyte and fluid balance, not elsewhere classified; I13.0 Hypertensive heart and chronic kidney disease with heart failure and stage 1 through stage 4 chronic kidney disease, or unspecified chronic kidney disease; I48.91 Unspecified atrial fibrillation; F03.90 Unspecified dementia, unspecified severity, without behavioral disturbance, psychotic disturbance, mood disturbance, and anxiety; N39.0 Urinary tract infection, site not specified; G45.9 Transient cerebral ischemic attack, unspecified; J98.11 Atelectasis; F33.9 Major depressive disorder, recurrent, unspecified; Z68.1 Body mass index [BMI] 19.9 or less, adult; Z79.899 Other long term (current) drug therapy; Z66 Do not resuscitate; N18.3 Chronic kidney disease, stage 3 (moderate); I25.10 Atherosclerotic heart disease of native coronary artery without angina pectoris; R91.8 Other nonspecific abnormal finding of lung field; D72.810 Lymphocytopenia; R00.1 Bradycardia, unspecified; Z51.5 Encounter for palliative care; Z88.1 Allergy status to other antibiotic agents; Z88.8 Allergy status to other drugs, medicaments and biological substances; Z90.49 Acquired absence of other specified parts of digestive tract; Z82.49 Family history of ischemic heart disease and other diseases of the circulatory system; I25.2 Old myocardial infarction